=== PATIENT | male | born 1970 | race Caucasian/White ===

== ENCOUNTER 2019-08-06 14:57 | Emergency (ER) | payer OTHER, MEDICAID ==
[~2019-08-06] VITALS: Ht 182.9 cm; Wt 142.9 kg
[2019-08-06 15:07] VITALS: BP_SYST 111
--- NOTE | 2019-08-06 15:10 | NUR ---
Patient to ER bed 2 to gown for evaluation. Side rails up. Report given to Chelsi GRAF.
--- NOTE | 2019-08-06 15:12 | NUR ---
Patient brought in by ambulance in the ED d/t being found sleeping in his car. Patient is taking Trazodone for sleeping and also smoked weed per patient. Denied any chest pain or shortness of breath. Denied any fevers, nausea, vomiting, or chills. Patient is alert and oriented x3, respirations even and unlabored. VSS, pain level 0/10. Informed of wait time. Instructed to notify ED staff for any changes in condition or worsening of symptoms. Patient verbalized understanding.
--- NOTE | 2019-08-06 15:15 | NUR ---
ER Dr. Levin at bedside examining patient.
--- NOTE | 2019-08-06 15:40 | NUR ---
Spoke with the patient's mom, she'll be picking him up.
[2019-08-06 15:57] VITALS: BP_SYST 134
--- NOTE | 2019-08-06 15:58 | NUR ---
Patient given written and verbal discharge instructions and verbalizes understanding. ER MD discussed with patient the results and treatment provided. Patient in stable condition. ID arm band removed. No Rx given. Patient educated on pain management and to follow up with PMD. Pain Scale 0/10. Opportunity for questions provided and answered. Medication side effect fact sheet provided.
== END 2019-08-06 15:58 | disposition home or self-care (01) ==
LOC: SED 14:57
DX: Z02.89 Encounter for other administrative examinations (principal); F31.9 Bipolar disorder, unspecified
CPT/HCPCS: 99283

== ENCOUNTER 2020-01-20 00:04 | Emergency (ER) | payer OTHER, MEDICAID ==
[~2020-01-20] VITALS: Ht 182.9 cm; Wt 140.6 kg
[2020-01-20 00:04] VITALS: BP_SYST 130
--- NOTE | 2020-01-20 00:04 | NUR ---
ER at bedside examining patient.
--- NOTE | 2020-01-20 00:04 | NUR ---
Patient brought in by law enforcement officers in handcuffs, here for medical clearance before booking. Patient awake/alert x 4, resp even, unlabored, afebrile, no cough, nausea, vomiting. Patient denied any pain and appeared to be a little agitated. Patient ambulatory with steady gait. Reported history of bipolar. Awaiting ER MD to tabitha.
--- NOTE | 2020-01-20 00:19 | NUR ---
Patient was medically cleared by Dr Leo, gave him written and verbal discharge instructions and verbalizes understanding. ER MD discussed with patient the care provided. Patient in stable condition.No RX given.Pain Scale 0/10. Opportunity for questions provided and answered by Dr Leo. Patient accompanied by law enforcement officers.
== END 2020-01-20 00:19 ==
LOC: SED 00:04
DX: Z02.89 Encounter for other administrative examinations (principal)
CPT/HCPCS: 99283

== ENCOUNTER 2020-09-30 19:02 | Emergency (ER) | payer BC, MEDICAID ==
[~2020-09-30] VITALS: Ht 185.4 cm; Wt 108.9 kg
[2020-09-30 19:02] VITALS: BP_SYST 151
--- NOTE | 2020-09-30 19:02 | NUR ---
Patient to ER bed Chair 2 to gown for evaluation. Side rails up. Report given to self. Patient arrived to ER accompanied w/ YURY Oneill Deputy for medical clearance (swelling to legs). Introduced self to patient, positioned for comfort. Continue to monitor.
--- NOTE | 2020-09-30 19:45 | NUR ---
ER Dr. Coburn at bedside examining patient.
--- NOTE | 2020-09-30 19:54 | NUR ---
Patient given written and verbal discharge instructions and verbalizes understanding. ER MD discussed with patient the results and treatment provided. Patient in stable condition. Patient educated on pain management and to follow up with PMD. Pain Scale 0. Opportunity for questions provided and answered. Medication side effect fact sheet provided.
== END 2020-09-30 19:54 ==
LOC: SED 19:02
DX: I87.8 Other specified disorders of veins (principal)
CPT/HCPCS: 99283